=== PATIENT | female | born 1970 | race Hispanic/Latino ===

== ENCOUNTER → 2023-03-10 | Outpatient (CLI) | payer BC ==
[~2023-03-10] MED LIST: IOHEXOL-350 50ML VIAL IV ONE; IOHEXOL-350 75 ML VIAL IV ONE
== END | disposition home or self-care (01) ==
LOC: RAH 10:23
PROVIDERS: ATTEND Internal Medicine Infectious Disease
DX: S82.402A Unspecified fracture of shaft of left fibula, initial encounter for closed fracture (principal); M89.9 Disorder of bone, unspecified; M86.9 Osteomyelitis, unspecified; M79.89 Other specified soft tissue disorders; X58.XXXA Exposure to other specified factors, initial encounter; Y93.89 Activity, other specified; Y92.89 Other specified places as the place of occurrence of the external cause; Y99.8 Other external cause status
CPT/HCPCS: 73701; Q9967